=== PATIENT | male | born 1970 | race Caucasian/White ===

== ENCOUNTER 2018-09-16 09:05 | Outpatient (RCR) | payer BC | END 2018-10-23 13:20 | disposition home or self-care (01) | LOC: WSOT 09:05 | DX: M25.511 Pain in right shoulder (principal) ==

== ENCOUNTER 2018-11-24 09:00 | Outpatient (RCR) | payer BC | END 2019-01-21 | disposition home or self-care (01) | LOC: MKS.ESL.PT | DX: Z47.89 Encounter for other orthopedic aftercare (principal) ==

== ENCOUNTER 2019-09-24 22:40 | Emergency (ER) | payer BC ==
[~2019-09-24] VITALS: Ht 180.3 cm; Wt 98.2 kg
[2019-09-24 22:41] VITALS: TEMP 98.1
[2019-09-24] MEDS ORDERED: HCTZ 25MG TAB25 MG PO (23:13)
[2019-09-25 00:11] VITALS: BP 133/95; PULSE 78
== END 2019-09-25 00:15 | disposition home or self-care (01) ==
LOC: COL.ER 22:40
DX: S59.901A Unspecified injury of right elbow, initial encounter (principal); I10 Essential (primary) hypertension; X50.1XXA Overexertion from prolonged static or awkward postures, initial encounter
CPT/HCPCS: J1885; J2360